=== PATIENT | male | born 1975 | race Caucasian/White ===

== ENCOUNTER → 2016-09-18 | Outpatient (CLI) | payer OTHER ==
[~2016-09-18] MED LIST: ANUSOL SUPP1 SUPP PR; DIOVAN HCT 3201 EACH PO; EXCEDRIN BACK1 EACH PO; MAGNESIUM200 MG PO; METOPROLOL TAR100 MG PO; VENLAFAXINE HC150 MG PO
--- NOTE | ~2016-09-18 | MR103 ---
[facility] A Service of [facility] & [facility] RADIOLOGY TEXT RESULTS PATIENT: CECE TERRAZAS LOCATION: [facility] : 75 UNIT #: [id number] AGE: [address]: Martin Gandara MD SEX: M ORDER DR: [id number] [address] [address] [id number] MR#: [id number] Acc #: [id number] NAME: CECE TERRAZAS : 1975 SEX: M STUDY DATE/TIME: 09/18/2016 10:06 UNIT: [facility] ROOM: STUDY DESCRIPTION: MR Knee Wo Contrast Lt Attending Physician: Martin Gandara M.D. Referring Physician: Martin Gandara M.D. Ordering Physician: Martin Gandara M.D. Primary Care Physician: Martin Gandara M.D. MRI CENTER REPORT This report is preliminary unless electronic signature is present. EXAM MRI left knee, 09/18/2016. COMPARISON Left knee radiographs, 07/06/2016. HISTORY Order states left knee pain. History sheet states no knee surgery. Status post injury June 2016. Jumped out of back of a pickup truck. His knee on the truck. Persistent pain for 3 months, especially under the patella. FINDINGS There is a minimal effusion without a popliteal cyst. Patellofemoral alignment is normal. There is multifocal moderate and high-grade chondromalacia patella including grade 4 chondromalacia at the median ridge and areas of subarticular cyst formation and mild marrow edema. Femoral trochlear articular cartilage is unremarkable. Quadriceps and patellar tendons are intact. There is mild fluid in the superficial prepatellar/patellar tendon bursa with surrounding inflammation. This can be post-traumatic or due to mild bursitis. Cruciate ligaments are normal. Medial meniscus and MCL are normal. Small synovial or ganglion cyst just anterior to the proximal MCL is noted and of doubtful significance. It measures 17 x 6 mm (craniocaudal by AP). Medial compartment articular cartilage is normal. The lateral meniscus demonstrates undersurface and free margin fraying adjacent to a zone of high-grade chondromalacia of the posterior weightbearing lateral tibial plateau. There is, however, no discrete STS. [facility] A Service of [facility] RADIOLOGY TEXT RESULTS PATIENT: CECE TERRAZAS LOCATION: [facility] : 75 UNIT #: [id number] AGE: [address]: Martin Gandara MD SEX: M ORDER DR: lateral meniscal tear. There is mild myxoid signal in the posterior horn which does not meet the signal criteria for a tear. The lateral collateral ligament complex and popliteus tendon are intact. There is also grade 4 chondromalacia of the posterior-superior non-weightbearing lateral femoral condyle with mild underlying marrow edema. There is no marrow lesion, fracture, bone contusion, or a loose body. IMPRESSION 1. Chondromalacia patella detailed above. 2. Inflammation and a small amount of fluid in the superficial prepatellar/proximal patellar tendon bursa compatible with mild bursitis or injury sequela. 3. Focal high-grade chondromalacia posterior weightbearing lateral tibial plateau with adjacent meniscal fibrillation/fraying without a discrete tear. 4. Grade 4 chondromalacia posterior-superior aspect lateral femoral condyle non-weightbearing portion. 5. Cruciate ligaments and medial meniscus are intact. 6. No fracture. Dictated by... Sharda Box M.D. THIS IS AN ELECTRONICALLY VERIFIED REPORT Sharda Box M.D. at 09/21/2016 8:20 AM TRACI/erin TD: 09/20/2016 15:53 JOB #: [id number] MRI CENTER REPORT Page 1 of 1
== END | disposition home or self-care (01) ==
LOC: SMRI 09:34
DX: M25.562 Pain in left knee (principal); M94.262 Chondromalacia, left knee
CPT/HCPCS: 73721